=== PATIENT | female | born 1930 | race Caucasian/White ===

== ENCOUNTER 2017-10-27 14:41 | Inpatient (IN) | payer MEDICARE, OTHER ==
--- NOTE | 2017-10-27 14:59 | ER Document Report ---
ED Respiratory Problem - General Stated Complaint: DIFFICULTY BREATHING Time Seen by Provider: 10/27/17 14:50 Notes: EMS was called to patient's home for wheezing and difficulty breathing. They recorded a 91% O2 sat and gave her a nebulizer treatment with albuterol and Atrovent. Her called the EMS. Patient has dementia and is not able to provide any reliable historical information. She is a former smoker, but stopped over 40 years ago. says that she has had a cough and congestion for several weeks but is getting worse. Has not noted any fever. No abdominal pains and no vomiting or diarrhea. No chest pains. was able to record an O2 sat of 88% last night and when the patient awakened midday today, her O2 sat was in the mid 80s. That is when he decided to call EMS. TRAVEL OUTSIDE OF THE [place] IN LAST 30 DAYS: No - Related Data Allergies/Adverse Reactions: Penicillins Allergy (Verified 10/05/11 14:29) Past Medical History - Social History Smoking Status: Former Smoker - 40 years ago Cigarette use (# per day): No Family History: Reviewed & Not Pertinent - Past Medical History Cardiac Medical History: Reports: Hx Hypertension GI Medical History: Reports: Hx Gastroesophageal Reflux Disease Musculoskeltal Medical History: Reports Hx Arthritis Psychiatric Medical History: Reports: Hx Dementia - Immunizations Hx Pneumococcal Vaccination: 09/11/06 Review of Systems - Review of Systems Notes: REVIEW OF SYSTEMS: Per her CONSTITUTIONAL : Denies fever. EENT: Denies eye, ear, nose or mouth or throat pain or other symptoms. CARDIOVASCULAR: Denies chest pain. RESPIRATORY: See HPI. GASTROINTESTINAL: Denies abdominal pain or nausea, vomiting, or diarrhea. GENITOURINARY: Denies difficulty or painful urinating, urinary frequency, blood in urine. MUSCULOSKELETAL: Denies back or neck pain. Denies joint pain or swelling. SKIN: Denies rash or skin lesions. NEUROLOGICAL: Denies LOC. Dementia. No lateralizing neurologic deficits. ALL OTHER SYSTEMS REVIEWED AND NEGATIVE. -: Yes ROS unobtainable due to patient's medical condition Physical Exam - Vital signs Vitals: Resp Pulse Ox 16 95 10/27/17 14:48 10/27/17 14:48 Interpretation: No: Hypoxic - While on O2. - Notes Notes: PHYSICAL EXAMINATION: GENERAL: Well-appearing, in no acute distress. Vital signs are all essentially normal and her O2 sat maintains in the 90s while on oxygen, but when discontinued, her O2 sat dropped into the upper 80s. Patient is very pleasant and cooperative, but very demented and difficult to understand anything she saying. HEAD: Atraumatic, normocephalic. Has difficulty hearing. EYES: Pupils equal round and reactive to light, extraocular movements intact. ENT: Moist mucous membranes. NECK: Normal range of motion, supple. LUNGS: Breath sounds with scattered rhonchi and rales and equal bilaterally. HEART: Regular rate and rhythm without murmurs. ABDOMEN: Soft, nontender. No guarding or rebound. No masses. BACK: No tenderness throughout entire back. EXTREMITIES: Normal range of motion without pain. No pretibial edema. NEUROLOGICAL: Normal speech, normal gait for her. Dementia. Awake, alert, but not and oriented. PSYCH: Normal mood, normal affect. SKIN: Warm, dry, no rashes. Course - Re-evaluation Re-evalutation: 10/27/17 18:41 Patient received a nebulizer treatment but no significant change in her breathing. She is comfortable. Her O2 sat is in the mid 90s so long as she is on oxygen. However, once her oxygen is removed, her O2 sat drops down to 90 or even to 87 - 88% and then vacillates back and forth between that level in the low 90s. Patient does not have oxygen at home and I am concerned about sending her home with oxygen saturations dropping down into the upper 80s. Have spoken with the hospitalist and we will put the patient in for observation to a floor bed. 10/27/17 19:[address] Parker who will admit the patient to telemetry for observation overnight. - Vital Signs Vital signs: Temp Pulse Resp BP Pulse Ox 97.7 F 83 20 121/57 L 92 10/27/17 14:56 10/27/17 14:56 10/27/17 18:20 10/27/17 18:01 10/27/17 18:20 - Laboratory Result Diagrams: 10/27/17 15:58 10/27/17 17:35 Laboratory results interpreted by me: 10/27/17 10/27/17 10/27/17 15:58 17:35 17:35 RBC 5.79 H Hgb 16.8 H Hct 50.4 H RDW 16.0 H Lymphocytes % 12.9 L Est GFR (Non-Af Amer) 51 L Total Bilirubin 1.4 H AST 41 H NT-Pro-B Natriuret Pep 2030 H Urine Ketones Urine Urobilinogen 10/27/17 17:55 RBC Hgb Hct RDW Lymphocytes % Est GFR (Non-Af Amer) Total Bilirubin AST NT-Pro-B Natriuret Pep Urine Ketones TRACE H Urine Urobilinogen 2.0 H - Diagnostic Test Radiology results interpreted by pa: 10/27/17 18:46 Chest x-ray shows COPD. No acute infiltrates. - EKG Interpretation by Ct EKG shows normal: Sinus rhythm Rate: Normal Rhythm: NSR Additional EKG results interpreted by pa: 10/27/17 18:46 EKG shows no acute changes. Discharge - Discharge Clinical Impression: COPD exacerbation, Hypoxia Condition: Fair Disposition: ADMITTED OBSERVATION Admitting Provider: Hospitalist Unit Admitted: Telemetry
[2017-10-27] MEDS ORDERED: IPRATROPIUM/ALBUTEROL 0.5-2.5 MG/3 ML AMPUL NEB ONE ×2 (15:15→18:34)
--- NOTE | 2017-10-27 15:58 | RADIOLOGY REPORT (SQ) ---
EXAM DESCRIPTION: CHEST PA/LAT COMPLETED DATE/TIME: 10/27/2017 3:45 pm REASON FOR STUDY: Difficulty breathing and short of breath. Wheezin COMPARISON: 10/17/2011 NUMBER OF VIEWS: Two view. TECHNIQUE: Frontal and lateral radiographic views of the chest acquired. LIMITATIONS: None. FINDINGS: LUNGS AND PLEURA: No opacities, masses or pneumothorax. No pleural effusion. Attenuated bl ood vessels and flattened lynnette-diaphragms. MEDIASTINUM AND HILAR STRUCTURES: No masses. No contour abnormalities. HEART AND VASCULAR STRUCTURES: Stable heart size. BONES: No acute findings. HARDWARE: None in the chest. OTHER: No other significant finding. IMPRESSION: COPD. NO ACUTE RADIOGRAPHIC FINDING IN THE CHEST. TECHNICAL DOCUMENTATION: JOB ID: [id number] [employer]- All Rights Reserved
[2017-10-27 16:14] LABS: ABSOLUTE BASOPHILS # (AUTO) 0.1 10^3/uL (0.0-0.2); ABSOLUTE EOSINOPHILS # (AUTO) 0.4 10^3/uL (0.0-0.6); ABSOLUTE LYMPHOCYTES (AUTO) 1.3 10^3/uL (0.5-4.7); ABSOLUTE NEUT (AUTO) 7.5 10^3/uL (1.7-8.2); BASOPHILS % (AUTO) 0.8 % (0-2); HEMATOCRIT 50.4 % (36.0-47.0); HEMOGLOBIN 16.8 g/dL (12.0-15.5); LYMPHOCYTES % (AUTO) 12.9 % (13-45); MEAN CORPUSCULAR HEMOGLOBIN 29.1 pg (27.0-33.4); MEAN CORPUSCULAR HGB CONC 33.4 g/dL (32.0-36.0); MEAN CORPUSCULAR VOLUME 87 fl (80-97); MONOCYTES % (AUTO) 9.8 % (3-13); PLATELET COUNT 194 10^3/uL (150-450); RED BLOOD COUNT 5.79 10^6/uL (3.72-5.28); SEGMENTED NEUTROPHILS % (AUTO) 72.5 % (42-78); TOTAL CELLS COUNTED % (AUTO) 100 %; WHITE BLOOD COUNT 10.3 10^3/uL (4.0-10.5)
[2017-10-27 16:18] LABS: VENOUS BLOOD BASE EXCESS 4.3 mmol/L; VENOUS BLOOD HCO3 29.7 mmol/L (20-32); VENOUS BLOOD PCO2 46.7 mmHg (35-63); VENOUS BLOOD PH 7.42 (7.30-7.42)
[2017-10-27 18:08] LABS: ALANINE AMINOTRANSFERASE 38 U/L (9-52); ALKALINE PHOSPHATASE 51 U/L (38-126); ANION GAP 12 (5-19); ASPARTATE AMINO TRANSFERASE 41 U/L (14-36); BILIRUBIN,DIRECT 0.4 mg/dL (0.0-0.4); BILIRUBIN,TOTAL 1.4 mg/dL (0.2-1.3); BLOOD UREA NITROGEN 19 mg/dL (7-20); CARBON DIOXIDE 27 mmol/L (22-30); CHLORIDE 106 mmol/L (98-107); GLUCOSE 105 mg/dL (75-110); POTASSIUM 3.9 mmol/L (3.6-5.0); SODIUM 144.5 mmol/L (137-145); TOTAL PROTEIN 6.7 g/dL (6.3-8.2)
[2017-10-27 18:20] LABS: CREATINE KINASE MB 1.54 ng/mL (<4.55); NT PRO BNP 2030 pg/mL (<450)
[2017-10-27 18:24] LABS: TROPONIN I < 0.012 ng/mL
[2017-10-27 18:38] LABS: APPEARANCE,URINE CLEAR; BILIRUBIN,URINE NEGATIVE (NEGATIVE); COLOR,URINE YELLOW; GLUCOSE, URINE NEGATIVE (NEGATIVE); KETONES,URINE TRACE mg/dL (NEGATIVE); LEUKOCYTE ESTERASE,URINE NEGATIVE (NEGATIVE); NITRITE,URINE NEGATIVE (NEGATIVE); PROTEIN,URINE NEGATIVE (NEGATIVE); URINE SPECIFIC GRAVITY 1.016
[2017-10-27] MEDS ORDERED: METHYLPREDNISOLONE INJ 125 MG/2 ML SDV IV ONE (18:47)
[2017-10-27] MEDS ORDERED: HYDRALAZINE HCL INJ/PF 20 MG/1 ML SDV IV PRN (19:27)
[2017-10-27] MEDS ORDERED: ENALAPRILAT DIHYDRATE INJ/PF 1.25 MG/1 ML SDV IV PRN (19:28)
[2017-10-27] MEDS ORDERED: MAG HYDROX/AL HYDROX/SIMETH SUSP 30 ML UDCUP PO PRN (19:28)
[2017-10-27] MEDS ORDERED: ACETAMINOPHEN 325 MG TABLET PO PRN (19:28)
[2017-10-27 21:10] LABS: CREATINE KINASE MB 1.51 ng/mL (<4.55)
[2017-10-27] MEDS ORDERED: FUROSEMIDE INJ/PF 40 MG/4 ML SDV IV ONE (21:15)
[2017-10-27 21:20] LABS: TROPONIN I < 0.012 ng/mL
[2017-10-27] MEDS: IPRATROPIUM/ALBUTEROL 0.5-2.5 MG/3 ML AMPUL NEB SCH (21:20)
[2017-10-27] MEDS ORDERED: CHLORPHENIRAMINE MALEATE 4 MG TABLET PO ONE (22:00)
[2017-10-27] MEDS: HEPARIN SOD (PORCINE) 5,000 UNIT/ML 1 ML SYRINGE SUBCUT SCH (23:00)
[2017-10-27] MEDS: FLUTICASONE NASAL SPRAY 50 MCG/SPRY 120 SPRAY/16 GM NASL SCH (23:50)
[2017-10-28 02:01] LABS: CREATINE KINASE MB 1.48 ng/mL (<4.55)
[2017-10-28 02:03] LABS: TROPONIN I < 0.012 ng/mL
[2017-10-28] MEDS: IPRATROPIUM/ALBUTEROL 0.5-2.5 MG/3 ML AMPUL NEB SCH ×4 (02:19→20:49)
--- NOTE | 2017-10-28 04:37 | PDOC H&P ---
History of Present Illness Admission Date/PCP: 10/27/17 19:58 Patient complains of: Shortness of breath and cough History of Present Illness: ZANDER OTTO is a 87 year old female with a past medical history of COPD, osteoarthritis, hypertension and advanced dementia. Patient is accompanied by her who is able to provide a very limited history stating "she has a little COPD". Patient has had a nonproductive cough without rhinorrhea, fever, nausea or vomiting. In the emergency room she has an unremarkable workup and is treated for acute on chronic bronchitis and referred the hospitalist for admission. On exam she is tachypneic with JVD and a systolic murmur. IV Lasix was initiated and cardiac enzymes and BNP are added. Patient at baseline is oriented to self only and essentially nonverbal. Past Medical History Cardiac Medical History: Reports: Hypertension Pulmonary Medical History: Reports: Bronchitis, Chronic Obstructive Pulmonary Disease (COPD) Denies: Tuberculosis GI Medical History: Reports: Gastroesophageal Reflux Disease Musculoskeltal Medical History: Reports: Arthritis Psychiatric Medical History: Reports: Dementia Past Surgical History Past Surgical History: Denies: Pacemaker Social History Information Source: Relative Lives with: Spouse/Significant other Smoking Status: Former Smoker - 40 years ago Hx Recreational Drug Use: No Drugs: None Hx Prescription Drug Abuse: No - Advance Directive Resuscitation Status: Do Not Resuscitate Family History Family History: Other - Unobtainable Parental Family History Reviewed: Yes Children Family History Reviewed: Yes Sibling(s) Family History Reviewed.: Yes Medication/Allergy Home Medications: Alprazolam [Xanax 0.25 mg Tablet] 0.25 mg PO TIDP PRN 10/27/17 Quetiapine Fumarate [Seroquel] 50 mg PO DAILY 10/27/17 Allergies/Adverse Reactions: Penicillins Allergy (Verified 10/05/11 14:29) Review of Systems ROS unobtainable: Due to mental status - Advanced dementia Physical Exam Vital Signs: Temp Pulse Resp BP Pulse Ox 97.7 F 83 25 H 152/87 H 96 10/27/17 14:56 10/27/17 14:56 10/28/17 00:01 10/28/17 00:01 10/28/17 00:01 General appearance: PRESENT: cooperative, disheveled, mild distress, thin Head exam: PRESENT: atraumatic, normocephalic Eye exam: PRESENT: conjunctiva pink, EOMI, PERRLA. ABSENT: scleral icterus Ear exam: PRESENT: normal external ear exam Mouth exam: PRESENT: moist, tongue midline Neck exam: PRESENT: JVD Respiratory exam: PRESENT: crackles, prolonged expiratory phas, rales, symmetrical, tachypnea. ABSENT: rhonchi, wheezes Cardiovascular exam: PRESENT: gallop, RRR, systolic murmur, tachycardia Pulses: PRESENT: normal dorsalis pedis pul Vascular exam: PRESENT: normal capillary refill GI/Abdominal exam: PRESENT: normal bowel sounds, soft. ABSENT: distended, guarding, mass, organolmegaly, rebound, tenderness Rectal exam: PRESENT: deferred Extremities exam: PRESENT: full ROM. ABSENT: calf tenderness, clubbing, pedal edema Neurological exam: PRESENT: alert, awake, oriented to person, CN II-XII grossly intact. ABSENT: oriented to place, oriented to time, oriented to situation Psychiatric exam: PRESENT: appropriate affect, normal mood. ABSENT: homicidal ideation, suicidal ideation Skin exam: PRESENT: dry, intact, warm. ABSENT: cyanosis, rash Results Laboratory Results: 10/27/17 20:14 TSH 1.30 10/27/17 10/27/17 10/28/17 20:14 20:14 01:17 Creatine Kinase 57 57 CK-MB (CK-2) 1.51 Troponin I < 0.012 10/28/17 01:17 Creatine Kinase CK-MB (CK-2) 1.48 Troponin I < 0.012 Impressions: Chest X-Ray 10/27/17 15:13 IMPRESSION: COPD. NO ACUTE RADIOGRAPHIC FINDING IN THE CHEST. Assessment & Plan - Diagnosis (1) Acute exacerbation of congestive heart failure Is this a current diagnosis for this admission?: Yes Plan: Exam suggests congestive heart failure. Empiric diuresis obtain cardiac enzymes and BNP. Given patient's comorbidity will treat empirically rather than obtain 2D echo. (2) Dementia Is this a current diagnosis for this admission?: Yes Plan: Supportive care, discharge planning consult for placement. Additionally doubting spouse is adequately independent. (3) COPD exacerbation Is this a current diagnosis for this admission?: Yes Plan: Incentive spirometry, flutter valve and supplemental oxygen. - Time Time Spent: 30 to 50 Minutes - Inpatient Certification Medical Necessity: Need Close Monitoring Due to Risk of Patient Decompensation
[2017-10-28] MEDS: HEPARIN SOD (PORCINE) 5,000 UNIT/ML 1 ML SYRINGE SUBCUT SCH ×3 (06:42→22:46)
[2017-10-28 08:34] LABS: ABSOLUTE LYMPHOCYTES (AUTO) 0.6 10^3/uL (0.5-4.7); ABSOLUTE MONOCYTES (AUTO) 0.1 10^3/uL (0.1-1.4); ABSOLUTE NEUT (AUTO) 4.3 10^3/uL (1.7-8.2); BASOPHILS % (AUTO) 0.3 % (0-2); EOSINOPHILS % (AUTO) 0.2 % (0-6); HEMATOCRIT 51.4 % (36.0-47.0); HEMOGLOBIN 17.1 g/dL (12.0-15.5); LYMPHOCYTES % (AUTO) 11.4 % (13-45); MEAN CORPUSCULAR HEMOGLOBIN 29.4 pg (27.0-33.4); MEAN CORPUSCULAR HGB CONC 33.3 g/dL (32.0-36.0); MEAN CORPUSCULAR VOLUME 88 fl (80-97); PLATELET COUNT 207 10^3/uL (150-450); RED BLOOD COUNT 5.82 10^6/uL (3.72-5.28); RED CELL DISTRIBUTION WIDTH 15.8 % (11.5-14.0); SEGMENTED NEUTROPHILS % (AUTO) 86.1 % (42-78); TOTAL CELLS COUNTED % (AUTO) 100 %
[2017-10-28 08:54] LABS: ANION GAP 15 (5-19); BLOOD UREA NITROGEN 20 mg/dL (7-20); CALCIUM 8.9 mg/dL (8.4-10.2); CARBON DIOXIDE 28 mmol/L (22-30); CHLORIDE 103 mmol/L (98-107); CREATINE KINASE 57 U/L (30-135); GLUCOSE 172 mg/dL (75-110); POTASSIUM 4.2 mmol/L (3.6-5.0); SODIUM 145.7 mmol/L (137-145)
[2017-10-28 09:05] LABS: CREATINE KINASE MB 1.38 ng/mL (<4.55)
[2017-10-28 09:09] LABS: TROPONIN I < 0.012 ng/mL
--- NOTE | 2017-10-28 09:52 | EKG REPORT ---
SEVERITY:- ABNORMAL ECG - SINUS RHYTHM MULTIPLE ATRIAL PREMATURE COMPLEXES BORDERLINE LEFT AXIS DEVIATION BORDERLINE T ABNORMALITIES, ANT-LAT LEADS : Confirmed by: Kevin Hebert 28-Oct-2017 09:51:27
[2017-10-28] MEDS: DOCUSATE SODIUM 100 MG CAPSULE PO SCH (10:17)
[2017-10-28] MEDS: POTASSIUM CHLORIDE 10 MEQ TABLET.SA PO SCH (10:17)
[2017-10-28] MEDS: FUROSEMIDE INJ/PF 40 MG/4 ML SDV IV SCH (10:21)
[2017-10-28] MEDS: FLUTICASONE NASAL SPRAY 50 MCG/SPRY 120 SPRAY/16 GM NASL SCH ×2 (10:24→22:45)
--- NOTE | 2017-10-28 12:47 | PDOC PROGRESS REPORT ---
Subjective Progress Note for:: 10/28/17 Subjective:: advanced dementia, cannot obtain subjective Reason For Visit: COPD EXACERBATION C HEART FAILURE Physical Exam Vital Signs: Temp Pulse Resp BP Pulse Ox 97.7 F 83 22 H 120/84 78 L 10/27/17 14:56 10/27/17 14:56 10/28/17 09:55 10/28/17 09:55 10/28/17 09:55 General appearance: PRESENT: hard of hearing, mild distress Head exam: PRESENT: atraumatic, normocephalic Eye exam: PRESENT: conjunctiva pink, PERRLA Mouth exam: PRESENT: dry mucosa Neck exam: ABSENT: lymphadenopathy Respiratory exam: PRESENT: rales, wheezes. ABSENT: accessory muscle use, prolonged expiratory phas Cardiovascular exam: PRESENT: RRR, systolic murmur Pulses: PRESENT: normal radial pulses GI/Abdominal exam: PRESENT: normal bowel sounds, soft. ABSENT: distended, tenderness Extremities exam: ABSENT: pedal edema Neurological exam: ABSENT: oriented to person, oriented to place, oriented to time, oriented to situation, other - advanced dementia, not comprehensible Psychiatric exam: PRESENT: anxious Skin exam: PRESENT: normal color Results Laboratory Results: 10/28/17 08:22 10/28/17 08:22 10/27/17 10/28/17 10/28/17 20:14 08:22 08:22 WBC 5.0 RBC 5.82 H Hgb 17.1 H Hct 51.4 H MCV 88 MCH 29.4 MCHC 33.3 RDW 15.8 H Plt Count 207 Seg Neutrophils % 86.1 H Lymphocytes % 11.4 L Monocytes % 2.0 L Eosinophils % 0.2 Basophils % 0.3 Absolute Neutrophils 4.3 Absolute Lymphocytes 0.6 Absolute Monocytes 0.1 Absolute Eosinophils 0.0 Absolute Basophils 0.0 Sodium 145.7 H Potassium 4.2 Chloride 103 Carbon Dioxide 28 Anion Gap 15 BUN 20 Creatinine 1.06 Est GFR ( Amer) 59 L Est GFR (Non-Af Amer) 49 L Glucose 172 H Calcium 8.9 TSH 1.30 10/27/17 10/27/17 10/28/17 20:14 20:14 01:17 Creatine Kinase 57 57 CK-MB (CK-2) 1.51 Troponin I < 0.012 10/28/17 10/28/17 10/28/17 01:17 08:22 08:22 Creatine Kinase 57 CK-MB (CK-2) 1.48 1.38 Troponin I < 0.012 < 0.012 Impressions: Chest X-Ray 10/27/17 15:13 IMPRESSION: COPD. NO ACUTE RADIOGRAPHIC FINDING IN THE CHEST. Assessment & Plan - Diagnosis (1) Acute hypoxemic respiratory failure Is this a current diagnosis for this admission?: Yes Plan: multifactorial due to CHF with exacerbation and COPD exacerbation with bronchitis, will treat underlying problems, titrate O2 as possible (2) Acute exacerbation of congestive heart failure Qualifiers: Heart failure type: unspecified Qualified Code(s): I50.9 - Heart failure, unspecified Is this a current diagnosis for this admission?: Yes (3) COPD exacerbation Is this a current diagnosis for this admission?: Yes Plan: Start azithromycin and prednisone daily, bronchodilators as ordered, O2 as needed for now, wean as tolerated (4) Dementia Qualifiers: Dementia type: unspecified type Is this a current diagnosis for this admission?: Yes Plan: fall precautions, montior for safety, embedded case manager consult for home safety eval (5) Bacteria in urine Is this a current diagnosis for this admission?: Yes Plan: also with some WBC, in a demented woman who cannot tell me if she is symptomatic. Have ordered urine culture to karen pruett. - Time Time Spent with patient: 25-34 minutes Anticipated discharge: Other Within: within 48 hours - Inpatient Certification Based on my medical assessment, after consideration of the patient's comorbidities, presenting symptoms, or acuity I expect that the services needed warrant INPATIENT care.: Yes I certify that my determination is in accordance with my understanding of Medicare's requirements for reasonable and necessary INPATIENT services [42 CFR 412.3e].: Yes Medical Necessity: Significant Comorbidiites Make Outpatient Treatment Too Risky , Need Close Monitoring Due to Risk of Patient Decompensation, Risk of Complication if Not Cared For in Hospital
[2017-10-28] MEDS ORDERED: AZITHROMYCIN 250 MG TABLET PO ONE (13:30)
[2017-10-29] MEDS: IPRATROPIUM/ALBUTEROL 0.5-2.5 MG/3 ML AMPUL NEB SCH ×4 (02:12→20:44)
[2017-10-29] MEDS: HEPARIN SOD (PORCINE) 5,000 UNIT/ML 1 ML SYRINGE SUBCUT SCH ×3 (06:18→21:30)
[2017-10-29 11:33] LABS: HEMATOCRIT 48.5 % (36.0-47.0); HEMOGLOBIN 16.3 g/dL (12.0-15.5); MEAN CORPUSCULAR HEMOGLOBIN 29.1 pg (27.0-33.4); MEAN CORPUSCULAR HGB CONC 33.5 g/dL (32.0-36.0); MEAN CORPUSCULAR VOLUME 87 fl (80-97); PLATELET COUNT 189 10^3/uL (150-450); RED BLOOD COUNT 5.59 10^6/uL (3.72-5.28); RED CELL DISTRIBUTION WIDTH 15.9 % (11.5-14.0)
[2017-10-29 11:34] LABS: WHITE BLOOD COUNT 11.9 10^3/uL (4.0-10.5)
[2017-10-29] MEDS: AZITHROMYCIN 250 MG TABLET PO SCH (11:49)
[2017-10-29] MEDS: PREDNISONE 20 MG TABLET PO SCH (11:49)
[2017-10-29] MEDS: DOCUSATE SODIUM 100 MG CAPSULE PO SCH (11:49)
[2017-10-29] MEDS: POTASSIUM CHLORIDE 10 MEQ TABLET.SA PO SCH (11:50)
[2017-10-29] MEDS: FUROSEMIDE INJ/PF 40 MG/4 ML SDV IV SCH (11:50)
[2017-10-29] MEDS: FLUTICASONE NASAL SPRAY 50 MCG/SPRY 120 SPRAY/16 GM NASL SCH ×2 (11:51→21:30)
[2017-10-29 11:58] LABS: ANION GAP 12 (5-19); BLOOD UREA NITROGEN 26 mg/dL (7-20); CALCIUM 8.6 mg/dL (8.4-10.2); CARBON DIOXIDE 26 mmol/L (22-30); CHLORIDE 105 mmol/L (98-107); GLUCOSE 81 mg/dL (75-110); POTASSIUM 3.9 mmol/L (3.6-5.0); SODIUM 142.8 mmol/L (137-145)
--- NOTE | 2017-10-29 15:15 | PDOC PROGRESS REPORT ---
Subjective Progress Note for:: 10/29/17 Subjective:: Patient has advanced dementia. She is almost incomprehensible. She will utterly say something that is understandable. Her translates for her. He states that she seems to be getting better. Her breathing is not back to normal but it seems better. She is not eating very well but eating more than she did yesterday. She has been getting up with help to use the room. No fevers or chills. The remainder of review of systems cannot be performed due to patient limitation. I have reviewed her labs and pertinent studies today. Reason For Visit: COPD AND CHF BOTH WITH EXACERBATION Physical Exam Vital Signs: Temp Pulse Resp BP Pulse Ox 98.7 F 117 H 16 111/78 96 10/29/17 06:00 10/29/17 13:38 10/29/17 13:38 10/29/17 12:40 10/29/17 13:38 General appearance: PRESENT: disheveled, mild distress Eye exam: PRESENT: conjunctiva pink Ear exam: PRESENT: normal external ear exam Mouth exam: PRESENT: moist Neck exam: ABSENT: lymphadenopathy Respiratory exam: PRESENT: rales, unlabored, other - Rales in the bilateral bases.. ABSENT: tachypnea Cardiovascular exam: PRESENT: RRR Pulses: PRESENT: normal radial pulses GI/Abdominal exam: PRESENT: normal bowel sounds, soft. ABSENT: distended, guarding, tenderness Rectal exam: PRESENT: deferred Extremities exam: ABSENT: pedal edema Musculoskeletal exam: PRESENT: normal inspection Neurological exam: PRESENT: alert, other - Moving all extremities spontaneously. ABSENT: oriented to person, oriented to place, oriented to situation Psychiatric exam: PRESENT: anxious Skin exam: PRESENT: dry, warm Results Laboratory Results: 10/29/17 10:55 10/29/17 10:55 10/29/17 10/29/17 10:55 10:55 WBC 11.9 H D RBC 5.59 H Hgb 16.3 H Hct 48.5 H MCV 87 MCH 29.1 MCHC 33.5 RDW 15.9 H Plt Count 189 Sodium 142.8 Potassium 3.9 Chloride 105 Carbon Dioxide 26 Anion Gap 12 BUN 26 H Creatinine 1.18 Est GFR ( Amer) 52 L Est GFR (Non-Af Amer) 43 L Glucose 81 Calcium 8.6 Impressions: Chest X-Ray 10/27/17 15:13 IMPRESSION: COPD. NO ACUTE RADIOGRAPHIC FINDING IN THE CHEST. Assessment & Plan - Diagnosis (1) Acute hypoxemic respiratory failure Is this a current diagnosis for this admission?: Yes Plan: Improving, satting mid 90s on room air. Continue treatment for CHF exacerbation and COPD exacerbation. (2) Acute exacerbation of congestive heart failure Qualifiers: Heart failure type: unspecified Qualified Code(s): I50.9 - Heart failure, unspecified Is this a current diagnosis for this admission?: Yes Plan: BUN and creatinine are slightly elevated today. Patient has been making good urine per report. Will hold Lasix tomorrow morning and reassess clinically. Lung exam has improved. (3) COPD exacerbation Is this a current diagnosis for this admission?: Yes Plan: Wheezing has improved. Continue prednisone any milligrams daily for a total of 5 days today is day 2. (4) Dementia Qualifiers: Dementia type: unspecified type Is this a current diagnosis for this admission?: Yes Plan: Advanced, multiple falls in the home. She lives with her elderly who is having difficulty caring for her it appears though he does not seem to be concerned. (5) Bacteria in urine Is this a current diagnosis for this admission?: Yes Plan: Awaiting urine culture. - Time Time Spent with patient: 25-34 minutes Medications reviewed and adjusted accordingly: Yes Anticipated discharge: Home with Homehealth - Inpatient Certification Based on my medical assessment, after consideration of the patient's comorbidities, presenting symptoms, or acuity I expect that the services needed warrant INPATIENT care.: Yes I certify that my determination is in accordance with my understanding of Medicare's requirements for reasonable and necessary INPATIENT services [42 CFR 412.3e].: Yes Medical Necessity: Significant Comorbidiites Make Outpatient Treatment Too Risky , Need Close Monitoring Due to Risk of Patient Decompensation, Risk of Complication if Not Cared For in Hospital
[2017-10-29] MEDS ORDERED: ALPRAZOLAM 0.25 MG TABLET PO PRN (22:47)
[2017-10-29] MEDS ORDERED: QUETIAPINE FUMARATE 25 MG TABLET PO ONE (23:00)
[2017-10-30] MEDS: IPRATROPIUM/ALBUTEROL 0.5-2.5 MG/3 ML AMPUL NEB SCH ×4 (02:11→21:15)
[2017-10-30] MEDS: HEPARIN SOD (PORCINE) 5,000 UNIT/ML 1 ML SYRINGE SUBCUT SCH ×3 (05:15→22:24)
[2017-10-30 05:25] LABS: HEMOGLOBIN 16.9 g/dL (12.0-15.5); MEAN CORPUSCULAR HEMOGLOBIN 29.4 pg (27.0-33.4); MEAN CORPUSCULAR HGB CONC 33.7 g/dL (32.0-36.0); MEAN CORPUSCULAR VOLUME 87 fl (80-97); PLATELET COUNT 161 10^3/uL (150-450); RED BLOOD COUNT 5.73 10^6/uL (3.72-5.28); RED CELL DISTRIBUTION WIDTH 15.8 % (11.5-14.0); WHITE BLOOD COUNT 9.3 10^3/uL (4.0-10.5)
[2017-10-30 05:45] LABS: ANION GAP 11 (5-19); BLOOD UREA NITROGEN 30 mg/dL (7-20); CALCIUM 8.8 mg/dL (8.4-10.2); CARBON DIOXIDE 27 mmol/L (22-30); CHLORIDE 106 mmol/L (98-107); GLUCOSE 86 mg/dL (75-110); POTASSIUM 4.3 mmol/L (3.6-5.0); SODIUM 144.4 mmol/L (137-145)
[2017-10-30] MEDS: AZITHROMYCIN 250 MG TABLET PO SCH (10:22)
[2017-10-30] MEDS: DOCUSATE SODIUM 100 MG CAPSULE PO SCH (10:22)
[2017-10-30] MEDS: FLUTICASONE NASAL SPRAY 50 MCG/SPRY 120 SPRAY/16 GM NASL SCH ×2 (10:22→22:24)
[2017-10-30] MEDS: PREDNISONE 20 MG TABLET PO SCH (10:22)
[2017-10-30] MEDS ORDERED: QUETIAPINE FUMARATE 25 MG TABLET PO SCH (22:00)
--- NOTE | 2017-10-30 22:35 | PDOC PROGRESS REPORT ---
Subjective Progress Note for:: 10/30/17 Subjective:: No complaint at this time. Poor historian secondary to dementia. No palpitations or chest pain, no fever or chills. Reason For Visit: COPD AND CHF BOTH WITH EXACERBATION Physical Exam Vital Signs: Temp Pulse Resp BP Pulse Ox 97.6 F 94 18 124/70 95 10/30/17 15:56 10/30/17 19:00 10/30/17 15:56 10/30/17 15:56 10/30/17 15:56 Intake & Output 10/29/17 10/30/17 10/31/17 06:59 06:59 06:59 Intake Total 100 840 Balance 100 840 Weight 47.1 kg GEN: NAD, frail elderly female CV: RRR, NL S1S2 LUNGS: Few basilar crackles ABDOMEN Soft, NT, +BS EXTERMITIES: No e/c/c NEURO: Alert Results Laboratory Results: 10/30/17 04:55 10/30/17 04:55 10/30/17 10/30/17 04:55 04:55 WBC 9.3 RBC 5.73 H Hgb 16.9 H Hct 50.0 H MCV 87 MCH 29.4 MCHC 33.7 RDW 15.8 H Plt Count 161 Sodium 144.4 Potassium 4.3 Chloride 106 Carbon Dioxide 27 Anion Gap 11 BUN 30 H Creatinine 1.19 Est GFR ( Amer) 52 L Est GFR (Non-Af Amer) 43 L Glucose 86 Calcium 8.8 Impressions: Chest X-Ray 10/27/17 15:13 IMPRESSION: COPD. NO ACUTE RADIOGRAPHIC FINDING IN THE CHEST. Assessment & Plan - Diagnosis (1) Acute hypoxemic respiratory failure Is this a current diagnosis for this admission?: Yes (2) Acute exacerbation of congestive heart failure Qualifiers: Heart failure type: unspecified Qualified Code(s): I50.9 - Heart failure, unspecified Is this a current diagnosis for this admission?: Yes (3) COPD exacerbation Is this a current diagnosis for this admission?: Yes (4) Bacteria in urine Is this a current diagnosis for this admission?: Yes (5) Dementia Qualifiers: Dementia type: unspecified type Is this a current diagnosis for this admission?: Yes - Plan Summary Plan Summary: Continue treatment of CHF and COPD exacerbation. Lasix was held this morning due to concern for bump in BUN/creatinine ratio. Patient currently hemodynamically stable. I will follow-up Chem-7 in a.m. Consider restarting low-dose p.o. Lasix if creatinine is stable. Patient with multiple falls. She lives with her elderly . PT/OT consult.
[2017-10-31] MEDS: IPRATROPIUM/ALBUTEROL 0.5-2.5 MG/3 ML AMPUL NEB SCH ×3 (02:22→13:55)
[2017-10-31] MEDS: HEPARIN SOD (PORCINE) 5,000 UNIT/ML 1 ML SYRINGE SUBCUT SCH ×2 (05:53→14:23)
[2017-10-31 06:47] LABS: ABSOLUTE LYMPHOCYTES (AUTO) 1.9 10^3/uL (0.5-4.7); ABSOLUTE NEUT (AUTO) 4.8 10^3/uL (1.7-8.2); BASOPHILS % (AUTO) 0.5 % (0-2); EOSINOPHILS % (AUTO) 0.2 % (0-6); HEMATOCRIT 48.1 % (36.0-47.0); HEMOGLOBIN 16.3 g/dL (12.0-15.5); LYMPHOCYTES % (AUTO) 24.4 % (13-45); MEAN CORPUSCULAR HEMOGLOBIN 29.4 pg (27.0-33.4); MEAN CORPUSCULAR HGB CONC 33.9 g/dL (32.0-36.0); MEAN CORPUSCULAR VOLUME 87 fl (80-97); MONOCYTES % (AUTO) 13.2 % (3-13); PLATELET COUNT 161 10^3/uL (150-450); RED BLOOD COUNT 5.53 10^6/uL (3.72-5.28); RED CELL DISTRIBUTION WIDTH 15.6 % (11.5-14.0); SEGMENTED NEUTROPHILS % (AUTO) 61.7 % (42-78); TOTAL CELLS COUNTED % (AUTO) 100 %; WHITE BLOOD COUNT 7.8 10^3/uL (4.0-10.5)
[2017-10-31 06:57] LABS: ANION GAP 9 (5-19); BLOOD UREA NITROGEN 30 mg/dL (7-20); CALCIUM 8.3 mg/dL (8.4-10.2); CARBON DIOXIDE 25 mmol/L (22-30); CHLORIDE 110 mmol/L (98-107); GLUCOSE 78 mg/dL (75-110); SODIUM 143.9 mmol/L (137-145)
[2017-10-31] MEDS: PREDNISONE 20 MG TABLET PO SCH (10:00)
[2017-10-31] MEDS: DOCUSATE SODIUM 100 MG CAPSULE PO SCH (10:00)
[2017-10-31] MEDS: FLUTICASONE NASAL SPRAY 50 MCG/SPRY 120 SPRAY/16 GM NASL SCH (10:00)
[2017-10-31] MEDS: AZITHROMYCIN 250 MG TABLET PO SCH (10:00)
[2017-10-31 12:19] VITALS: BP 113/69
--- NOTE | 2017-10-31 18:27 | XCELERA REPORT ---
[address] [address] Transthoracic Echocardiogram Report Name: ZANDER OTTO Age: 87 yrs Gender: Female : 1930 Patient Status: Inpatient Patient Location: [address] [place] [address] Study Date: 10/31/2017 03:34 PM Height: 62 in Weight: 104 lb BSA: 1.4 m2 Procedure: A complete two-dimensional transthoracic echocardiogram was performed (2D, M-mode, spectral and color flow Doppler). The study was technically adequate with some images being suboptimal in quality. Reason For Study: chf undiagnosed Ordering Physician: YESSICA PUGA Performed By: Hina Haile Interpretation Summary The left ventricular ejection fraction is normal. Doppler measurements suggest pseudonormalized left ventricular relaxation, which is associated with grade II/IV or mild to moderate diastolic dysfunction There is mild concentric left ventricular hypertrophy. The left ventricle is grossly normal size. Wall motion cannot be accurately commented on, but no definite regional wall motion abnormalities noted. The right ventricular systolic function is normal. The right atrium is normal. Borderline left atrial enlargement. There is a trace to mild amount of mitral regurgitation There is no mitral valve stenosis. No aortic regurgitation is present. There is mild aortic stenosis There is a trace or physiologic amount of tricuspid regurgitation Tricuspid regurgitation jet envelope not well defined to measure RV systolic pressure accurately. The aortic root is not well visualized. The inferior vena cava appeared normal and decreased > 50% with respiration (RAP 5-10 mmHg) There is no pericardial effusion. MMode/2D Measurements & Calculations RVDd: 2.1 cm LVIDd: 4.5 cm FS: 36.6 % Ao root diam: 2.5 cm IVSd: 1.0 cm LVIDs: 2.8 cm EDV(Teich): 90.2 ml LVPWd: 0.95 cm ESV(Teich): 30.1 ml Ao root area: 4.7 cm2 EF(Teich): 66.6 % Doppler Measurements & Calculations MV E max di: MV dec slope: Ao V2 max: LV V1 max P.4 cm/sec 185.4 cm/sec 2.5 mmHg MV A max di: 179.4 cm/sec2 Ao max PG: LV V1 max: 125.9 cm/sec MV dec time: 13.7 mmHg 78.4 cm/sec MV E/A: 0.57 0.40 sec PA V2 max: TR max di: 51.3 cm/sec 179.3 cm/sec PA max P.1 mmHg TR max P.2 mmHg Left Ventricle The left ventricle is grossly normal size. There is mild concentric left ventricular hypertrophy. The left ventricular ejection fraction is normal. Doppler measurements suggest pseudonormalized left ventricular relaxation, which is associated with grade II/IV or mild to moderate diastolic dysfunction. Wall motion cannot be accurately commented on, but no definite regional wall motion abnormalities noted. Right Ventricle The right ventricle is normal in size, thickness and function. There is normal right ventricular wall thickness. The right ventricular systolic function is normal. Atria The right atrium is normal. Borderline left atrial enlargement. Interarterial septum not well visualized and not well dopplered. Cannot comment on ASD/PFO presence. Mitral Valve There is mild to moderate mitral leaflet calcification. There is moderate to severe mitral annular calcification. There is no mitral valve stenosis. There is a trace to mild amount of mitral regurgitation. Aortic Valve The aortic valve is moderately calcified. There is mild aortic stenosis. No aortic regurgitation is present. Tricuspid Valve The tricuspid valve is not well visualized, but is grossly normal. There is no tricuspid stenosis. There is a trace or physiologic amount of tricuspid regurgitation. Tricuspid regurgitation jet envelope not well defined to measure RV systolic pressure accurately. Pulmonic Valve The pulmonic valve is not well visualized. Great Vessels The aortic root is not well visualized. The inferior vena cava appeared normal and decreased > 50% with respiration (RAP 5-10 mmHg). Effusions There is no pericardial effusion. : YESSICA PUGA > Kevin Hebert
--- NOTE | 2017-11-01 19:05 | PDOC DISCHARGE SUMMARY ---
General - Admit/Disc Date/PCP Admission Date/Primary Care Provider: 10/28/17 18:18 Discharge Date: 11/01/17 - Discharge Diagnosis (1) COPD exacerbation Is this a current diagnosis for this admission?: Yes (2) Dementia Is this a current diagnosis for this admission?: Yes - Additional Information Resuscitation Status: Do Not Resuscitate Discharge Diet: Regular Discharge Activity: Activity As Tolerated Prescriptions: Ipratropium/Albuterol Sulfate [Duoneb 3 ml Ampul] 3 ml NEB RTQ6 30 Days #120 vial.neb Home Medications: Alprazolam [Xanax 0.25 mg Tablet] 0.25 mg PO TIDP PRN 10/27/17 Quetiapine Fumarate [Seroquel] 50 mg PO DAILY 10/27/17 Ipratropium/Albuterol Sulfate [Duoneb 3 ml Ampul] 3 ml NEB RTQ6 30 Days #120 vial.neb 10/31/17 History of Present Illness History of Present Illness: ZANDER OTTO is a 87 year old female with a history of dementia who presented to the hospital with shortness of breath and cough. Her cough was nonproductive. She did not report fever or chills. Hospital Course Hospital Course: She was admitted for shortness of breath. Her symptoms were attributed to COPD exacerbation. She was treated with oxygen, and nebulized bronchodilators. There was some concern that she may have been experiencing a CHF exacerbation as well. However, her lungs were clear on exam as well as the x-ray. Echocardiograms showed normal LVEF. She had mild to moderate diastolic dysfunction. Her hospital stay was uneventful. Physical Exam Vital Signs: Temp Pulse Resp BP Pulse Ox 98.0 F 83 16 113/69 93 10/31/17 12:00 10/31/17 13:55 10/31/17 13:55 10/31/17 12:00 10/31/17 13:55 Intake & Output 10/30/17 10/31/17 11/01/17 06:59 06:59 06:59 Intake Total 100 840 Balance 100 840 Weight 46.3 kg General appearance: PRESENT: no acute distress, thin Neck exam: ABSENT: JVD Respiratory exam: PRESENT: clear to auscultation niranjan. ABSENT: rales, rhonchi, wheezes Cardiovascular exam: PRESENT: RRR. ABSENT: diastolic murmur, rubs, systolic murmur Neurological exam: PRESENT: alert Psychiatric exam: PRESENT: appropriate affect, normal mood. ABSENT: homicidal ideation, suicidal ideation Skin exam: PRESENT: dry, intact, warm. ABSENT: cyanosis, rash Results Laboratory Results: 10/31/17 05:40 10/31/17 05:40 10/31/17 10/31/17 05:40 05:40 WBC 7.8 RBC 5.53 H Hgb 16.3 H Hct 48.1 H MCV 87 MCH 29.4 MCHC 33.9 RDW 15.6 H Plt Count 161 Seg Neutrophils % 61.7 Lymphocytes % 24.4 Monocytes % 13.2 H Eosinophils % 0.2 Basophils % 0.5 Absolute Neutrophils 4.8 Absolute Lymphocytes 1.9 Absolute Monocytes 1.0 Absolute Eosinophils 0.0 Absolute Basophils 0.0 Sodium 143.9 Potassium 4.0 Chloride 110 H Carbon Dioxide 25 Anion Gap 9 BUN 30 H Creatinine 1.08 Est GFR ( Amer) 58 L Est GFR (Non-Af Amer) 48 L Glucose 78 Calcium 8.3 L Impressions: Chest X-Ray 10/27/17 15:13 IMPRESSION: COPD. NO ACUTE RADIOGRAPHIC FINDING IN THE CHEST. Qualifiers - * PATEINT BEING DISCHARGED WITH ANY OF THE FOLLOWING DIAGNOSIS?: No Plan Time Spent: Greater than 30 Minutes - 35 minutes
== END 2017-10-31 16:38 | disposition home health service (06) | DRG 190 ==
LOC: ER 14:41 → EH 19:58 → OBSVTOIN 10-28 18:18 → EH 10-29 07:48 → 4W 10-29 12:49
PROVIDERS: ADMIT Internal Medicine; ATTEND Internal Medicine
PROC: 5A09357 Assistance with Respiratory Ventilation, Less than 24 Consecutive Hours, Continuous Positive Airway Pressure (ICD-10-PCS; principal; 2017-10-28)
PROC: 3E0F73Z Introduction of Anti-inflammatory into Respiratory Tract, Via Natural or Artificial Opening (ICD-10-PCS; 2017-10-28)
DX: J44.1 Chronic obstructive pulmonary disease with (acute) exacerbation (principal); J96.01 Acute respiratory failure with hypoxia; F03.90 Unspecified dementia, unspecified severity, without behavioral disturbance, psychotic disturbance, mood disturbance, and anxiety; M19.91 Primary osteoarthritis, unspecified site; I11.0 Hypertensive heart disease with heart failure; K21.9 Gastro-esophageal reflux disease without esophagitis; I50.9 Heart failure, unspecified; Z66 Do not resuscitate; Z87.891 Personal history of nicotine dependence; Z79.899 Other long term (current) drug therapy; Z88.0 Allergy status to penicillin
CPT/HCPCS: 36415; 71046; 80048; 80053; 81001; 82550; 82553; 82803; 83880; 84443; 84484; 85025; 85027; 87086; 93005; 93010; 93306; 94640; 96372; 96374; 96375; 96376; 99285; G0378; G8978-GP; G8979-GP; G8987-GO; G8988-GO; G8989-GO; J1644; J1940; J2930; J3490; J7512; J7620

== ENCOUNTER 2018-01-10 09:06 | Emergency (ER) | payer MEDICARE, OTHER ==
[2018-01-10 10:48] LABS: ABSOLUTE BASOPHILS # (AUTO) 0.1 10^3/uL (0.0-0.2); ABSOLUTE EOSINOPHILS # (AUTO) 0.3 10^3/uL (0.0-0.6); ABSOLUTE LYMPHOCYTES (AUTO) 1.1 10^3/uL (0.5-4.7); ABSOLUTE MONOCYTES (AUTO) 0.6 10^3/uL (0.1-1.4); ABSOLUTE NEUT (AUTO) 4.5 10^3/uL (1.7-8.2); BASOPHILS % (AUTO) 0.9 % (0-2); EOSINOPHILS % (AUTO) 5.2 % (0-6); HEMATOCRIT 48.3 % (36.0-47.0); HEMOGLOBIN 16.1 g/dL (12.0-15.5); LYMPHOCYTES % (AUTO) 16.5 % (13-45); MEAN CORPUSCULAR HGB CONC 33.3 g/dL (32.0-36.0); MEAN CORPUSCULAR VOLUME 90 fl (80-97); MONOCYTES % (AUTO) 9.3 % (3-13); PLATELET COUNT 176 10^3/uL (150-450); RED BLOOD COUNT 5.35 10^6/uL (3.72-5.28); RED CELL DISTRIBUTION WIDTH 14.7 % (11.5-14.0); SEGMENTED NEUTROPHILS % (AUTO) 68.1 % (42-78); TOTAL CELLS COUNTED % (AUTO) 100 %; WHITE BLOOD COUNT 6.6 10^3/uL (4.0-10.5)
[2018-01-10 11:11] LABS: APPEARANCE,URINE SLIGHTLY-CLOUDY; BILIRUBIN,URINE NEGATIVE (NEGATIVE); COLOR,URINE YELLOW; GLUCOSE, URINE NEGATIVE (NEGATIVE); KETONES,URINE NEGATIVE (NEGATIVE); LEUKOCYTE ESTERASE,URINE SMALL (NEGATIVE); NITRITE,URINE NEGATIVE (NEGATIVE); PROTEIN,URINE NEGATIVE (NEGATIVE); URINE SPECIFIC GRAVITY 1.015; UROBILINOGEN,URINE NEGATIVE mg/dL (<2.0)
[2018-01-10 11:15] LABS: ALANINE AMINOTRANSFERASE 24 U/L (9-52); ALBUMIN 3.9 g/dL (3.5-5.0); ALKALINE PHOSPHATASE 51 U/L (38-126); ANION GAP 13 (5-19); ASPARTATE AMINO TRANSFERASE 27 U/L (14-36); BILIRUBIN,DIRECT 0.2 mg/dL (0.0-0.4); BILIRUBIN,TOTAL 1.4 mg/dL (0.2-1.3); BLOOD UREA NITROGEN 10 mg/dL (7-20); CALCIUM 8.1 mg/dL (8.4-10.2); CARBON DIOXIDE 32 mmol/L (22-30); CHLORIDE 106 mmol/L (98-107); GLUCOSE 81 mg/dL (75-110); POTASSIUM 3.3 mmol/L (3.6-5.0); SODIUM 150.8 mmol/L (137-145); TOTAL PROTEIN 6.3 g/dL (6.3-8.2)
[2018-01-10 11:19] LABS: ACETAMINOPHEN < 10 ug/mL (10-30); ALCOHOL < 10 mg/dL (NONE DETECTED); SALICYLATE < 1.0 mg/dL (2.0-20.0)
[2018-01-10] MEDS ORDERED: RISPERIDONE 0.25 MG TABLET PO ONE (11:23)
[2018-01-10 11:27] LABS: URINE AMPHETAMINES SCREEN NEGATIVE; URINE BARBITURATES SCREEN NEGATIVE; URINE BENZODIAZEPINES SCREEN NEGATIVE; URINE COCAINE SCREEN NEGATIVE; URINE MARIJUANA (THC) SCREEN NEGATIVE; URINE METHADONE SCREEN NEGATIVE; URINE PHENCYCLIDINE SCREEN NEGATIVE
[2018-01-10] MEDS ORDERED: HALOPERIDOL LACTATE INJ 5 MG/1 ML VIAL IM ONE (11:50)
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
[2018-01-10] MEDS ORDERED: CLONIDINE 0.1 MG/24 HR PATCH.TDWK TD ONE (17:42)
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
[2018-01-10 17:51] VITALS: BP 126/76
--- NOTE | 2018-01-10 23:32 | EKG REPORT ---
SEVERITY:- BORDERLINE ECG - SINUS ARRHYTHMIA, RATE 65-[address] DEPRESSION, ANTEROLATERAL LEADS BORDERLINE PROLONGED QT INTERVAL ATRIAL PREMATURE COMPLEX : Confirmed by: Kevin Hebert 10-Jan-2018 23:31:40
== END 2018-01-10 17:51 | disposition home or self-care (01) ==
LOC: ER 09:06
DX: E87.0 Hyperosmolality and hypernatremia (principal); E86.0 Dehydration; F03.91 Unspecified dementia, unspecified severity, with behavioral disturbance; E87.6 Hypokalemia; Z79.899 Other long term (current) drug therapy; I10 Essential (primary) hypertension; J44.9 Chronic obstructive pulmonary disease, unspecified
CPT/HCPCS: 93005; 99284; 96372; 36415; 80307 ×4; 85025; 80053; 81001; 93010; J1630; J3490